=== PATIENT | female | born 1945 | race Two or more races ===

== ENCOUNTER 2018-05-22 21:04 | Emergency (ER) | payer OTHER ==
[~2018-05-22] VITALS: Ht 167.6 cm; Wt 67.1 kg
--- NOTE | 2018-05-22 21:15 | NUR ---
PT BIBRA 87 C/O CHEST PAIN W/ LUQ ABD PAIN. PT ALSO COMPLAINING OF PAIN WITH INSPIRATION. PT 89%RA WITH NASAL CANULA, O2 SAT NOW 94%. PT WAS GIVEN ASA 162MG & NTG 0.8MG W/ BG 96 IN FIELD. PT DENIES SOB, NVD. NO ACUTE DISTRESS NOTED AT THIS TIME. PT PLACED IN GOWN AND ON MONITOR. WAITING MD EVALUATION
--- NOTE | 2018-05-22 21:17 | NUR ---
MD AT BEDSIDE FOR EVALUATION
[2018-05-22] MEDS ORDERED: MAG30ORA PO (21:18)
[2018-05-22] MEDS ORDERED: DABI150C PO (21:18)
[2018-05-22] MEDS ORDERED: RISP2TAB5 PO (21:18)
[2018-05-22] MEDS ORDERED: AMLO10TA4 PO (21:18)
[2018-05-22] MEDS ORDERED: DONE5TAB7 PO (21:18)
[2018-05-22] MEDS ORDERED: NA P133E RC (21:18)
[2018-05-22] MEDS ORDERED: PALI117D IM (21:18)
[2018-05-22] MEDS ORDERED: ACET-868 PO (21:18)
[2018-05-22] MEDS ORDERED: DIVA500T2 PO (21:18)
--- NOTE | 2018-05-22 21:20 | NUR ---
RADIOLOGY AT BEDSIDE FOR CXR
--- NOTE | 2018-05-22 21:29 | NUR ---
PT HAS IV SITE 20G LEFT AC PLACED BY RA IN FIELD. UNABLE TO DRAW LABS FROM SITE. FLUSHES WELL, INTACT AND PATENT. [employer] AT BEDSIDE FOR BLOOD DRAW
--- NOTE | 2018-05-22 21:29 | NUR ---
PATIENT'S SON CALLED TO LEAVE NUMBER FOR UPDATES: TOMAS (SON) - [phone]
[2018-05-22 21:35] LABS: BASOPHILS % (AUTO) 0.2 % (0.0-2.0); EOSINOPHILS % (AUTO) 2.4 % (0.0-6.0); HEMATOCRIT 37 % (33-45); HEMOGLOBIN 12.5 g/dL (11.5-14.8); LYMPHOCYTES # (AUTO) 1.5 /CMM (0.8-4.8); LYMPHOCYTES % (AUTO) 23.7 % (20.0-44.0); MEAN CORPUSCULAR HEMOGLOBIN 28 PG (26.0-33.0); MEAN CORPUSCULAR HGB CONC 34 g/dl (31.0-36.0); MEAN CORPUSCULAR VOLUME 84 fL (82-100); MONOCYTES # (AUTO) 0.6 /CMM (0.1-1.30); MONOCYTES % (AUTO) 8.7 % (2.0-12.0); NEUTROPHILS # (AUTO) 4.2 /CMM (1.8-8.9); PLATELET COUNT (AUTO) 183 /CMM (150-450); RDW COEFFICIENT OF VARIATION 13.4 (11.5-15.0); RED BLOOD CELL COUNT(AUTO) 4.38 MIL/uL (4.0-5.2); WHITE BLOOD COUNT (AUTO) 6.5 K/uL (4.3-11.0)
[2018-05-22 21:42] LABS: CALCIUM, SERUM 8.8 mg/dL (8.5-10.1); CARBON DIOXIDE 30 mmol/L (21-32); CHLORIDE 105 mmol/L (98-107); CREATININE 0.8 mg/dL (0.6-1.3); GLUCOSE 100 mg/dL (74-106); POTASSIUM 3.8 mmol/L (3.5-5.1); SODIUM SERUM 137 mmol/L (136-145); UREA NITROGEN, BLOOD 17 mg/dL (7-18)
[2018-05-22 21:51] LABS: TROPONIN I < 0.017 ng/mL (0.00-0.056)
[2018-05-22 21:56] LABS: INR 1.04 (0.87-1.13)
--- NOTE | 2018-05-22 22:17 | NUR ---
PT RESTING COMFORTABLY IN BED. PT AAOX4. PT STATES SHE IS STARTING TO FEEL BETTER. VSS. WILL CONTINUE TO MONITOR
--- NOTE | 2018-05-22 22:45 | NUR ---
CALLED [facility] FOR THIS PT.
--- NOTE | 2018-05-22 22:59 | NUR ---
SON REQUESTING TO CALL CELL PHONE NUMBER [phone] FOR UPDATE
--- NOTE | 2018-05-22 23:33 | NUR ---
CALLED [facility] [address] [facility] TO FOLLOW UP SPOKE WITH SAMMY , SHE SAID A [facility] WILL BE CALLING US SHORTLY.
[2018-05-23] MEDS ORDERED: MORPHINE SULFATE INJ 4 MG/ML DISP.SYRIN ONE (01:23)
[2018-05-23] MEDS ORDERED: MORPHINE SULFATE INJ 2 MG/ML DISP.SYRIN IV ONE (01:30)
--- NOTE | 2018-05-23 01:44 | NUR ---
Pt accepted to [facility] ER by Dr Hillman. # for report [phone]. eta [phone]
--- NOTE | 2018-05-23 01:50 | NUR ---
REPORT GIVEN TO [place] NURSE ELIZABETH FOR [facility]
[2018-05-23 02:33] VITALS: BP 139/77
--- NOTE | 2018-05-23 02:39 | NUR ---
REPORT GIVEN TO SALLIE WITH [facility] FOR [facility]. [facility]S PROT[employer]OL FOR TRANSPORT
== END 2018-05-23 02:46 | disposition home or self-care (01) ==
LOC: ER 21:08
DX: R07.89 Other chest pain (principal); L76.82 Other postprocedural complications of skin and subcutaneous tissue; L90.5 Scar conditions and fibrosis of skin; I10 Essential (primary) hypertension; I49.8 Other specified cardiac arrhythmias; I27.82 Chronic pulmonary embolism; F20.9 Schizophrenia, unspecified; F31.9 Bipolar disorder, unspecified; G30.9 Alzheimer's disease, unspecified; F02.80 Dementia in other diseases classified elsewhere, unspecified severity, without behavioral disturbance, psychotic disturbance, mood disturbance, and anxiety; Y83.8 Other surgical procedures as the cause of abnormal reaction of the patient, or of later complication, without mention of misadventure at the time of the procedure
CPT/HCPCS: 36415; 71045; 80048; 84484; 85025; 85730; 93005; 96374; 99285; A4606; J2270; Z7610